=== PATIENT | female | born 1980 ===

== ENCOUNTER 2017-09-10 07:37 | Emergency (ER) | payer OTHER ==
[2017-09-10 07:43] VITALS: BP 119/85; PULSE 79; RESP 16; TEMP 98.1; O2SAT 99; BMI 31.4
[2017-09-10] MEDS ORDERED: Naproxen 500 MG TAB PO ONE ×2 (08:42→09:13)
--- NOTE | 2017-09-10 09:07 | ED PDOC ---
Lower Extremity Pain/Injury Time Seen by Provider: 09/10/17 08:06 Chief Complaint (Nursing): Lower Extremity Problem/Injury Chief Complaint (Provider): Lower Extremity Problem/Injury History Per: Patient History/Exam Limitations: no limitations Onset/Duration Of Symptoms: Hrs (x1) Current Symptoms Are (Timing): Still Present Additional Complaint(s): 36 year old female who presents to the emergency department with bilateral right knee pain radiating to right calf associated with difficulty walking status post climbing aboard a commuter bus this morning. Denied any further medical complaints. PMD: none provided Past Medical History Reviewed: Historical Data, Nursing Documentation, Vital Signs Vital Signs: Last Vital Signs Temp 98.1 F 09/10/17 07:42 Pulse 79 09/10/17 07:42 Resp 16 09/10/17 07:42 BP 119/85 09/10/17 07:42 Pulse Ox 99 09/10/17 07:42 - Medical History PMH: No Chronic Diseases - Surgical History Surgical History: No Surg Hx - Family History Family History: States: Unknown Family Hx - Social History Current smoker - smoking cessation education provided: No Ex-Smoker (has not smoked in the last 12 months): No Alcohol: None Drugs: Denies - Home Medications Home Medications: Ambulatory Orders Medication Instructions Recorded Famotidine [Pepcid] 20 mg PO BID #28 tab 09/10/17 Naproxen [Naprosyn] 500 mg PO BID PRN #20 tablet 09/10/17 - Allergies Allergies/Adverse Reactions: Allergies Allergy/AdvReac Type Severity Reaction Status Date / Time No Known Allergies Allergy Verified 09/10/17 07:51 Review of Systems ROS Statement: Except As Marked, All Systems Reviewed And Found Negative Musculoskeletal: Positive for: Leg Pain (right knee bilaterally and right calf) , Other (difficulty walking) Physical Exam - Reviewed Nursing Documentation Reviewed: Yes Vital Signs Reviewed: Yes - Physical Exam Appears: Positive for: Non-toxic, No Acute Distress Extremity: Positive for: Normal ROM (right leg), Tenderness (palpale right knee) , Pedal Edema (or erythema/effusion), Capillary Refill (2+), Other (5/5 ankle strength). Negative for: Calf Tenderness (right-sided), Deformity (right knee) - ECG O2 Sat by Pulse Oximetry: 99 (RA) Pulse Ox Interpretation: Normal - Radiology X-Ray: Viewed By Al X-Ray Interpretation: No Acute Disease - Progress Condition: Improving,but remains with symptoms Medical Decision Making Medical Decision Making: Initial Impression: Acute knee strain Initial Plan: * Urine * Xray knee (right) * Naproxen 500mg PO Scribe Attestation: Documented by Kanika Fitzgerald, acting as a scribe for Sofía Whitaker MD. Provider Scribe Attestation: All medical record entries made by the Scribe were at my direction and personally dictated by me. I have reviewed the chart and agree that the record accurately reflects my personal performance of the history, physical exam, medical decision making, and the department course for this patient. I have also personally directed, reviewed, and agree with the discharge instructions and disposition. Disposition - Clinical Impression Clinical Impression: Knee pain - Patient ED Disposition Is Patient to be Admitted: No Doctor Will See Patient In The: Office Counseled Patient/Family Regarding: Diagnosis, Need For Followup, Rx Given - Disposition Referrals: [facility] [Outside] [facility] [Outside] Disposition: Routine/Home Disposition Time: 09:15 Condition: STABLE Prescriptions: Famotidine [Pepcid] 20 mg PO BID #28 tab Naproxen [Naprosyn] 500 mg PO BID PRN #20 tablet PRN Reason: Pain, Moderate (4-7) Instructions: Knee Pain (ED) Forms: [employer] (Marshallese), [facility] ED School/Work Excuse Print Language: NEPALI - POA Present On Arrival: Falls Or Trauma
--- NOTE | 2017-09-10 11:14 | RAD ---
PROCEDURE: Right Knee Radiographs. HISTORY: Twisted knee while climbing onto commuter van COMPARISON: None. FINDINGS: BONES: No evidence of acute displaced fracture or dislocation.Small elliptical sclerotic density within the medial epicondyle consistent with bone island or osteoma JOINTS: Normal. No osteoarthritis. JOINT EFFUSION: Suspect trace joint effusion OTHER FINDINGS: None. IMPRESSION: No evidence of acute displaced fracture nor dislocation.
== END 2017-09-10 10:10 | disposition home or self-care (01) ==
LOC: H.ER 07:37
DX: M25.561 Pain in right knee (principal)

== ENCOUNTER 2017-10-19 10:27 | Emergency (ER) | payer OTHER ==
[2017-10-19 10:27] VITALS: BMI 31.4
[2017-10-19 10:53] VITALS: BP 116/59; PULSE 81; RESP 16; TEMP 98; O2SAT 99
--- NOTE | 2017-10-19 11:21 | ED PDOC ---
Lower Extremity Pain/Injury Time Seen by Provider: 10/19/17 11:09 Chief Complaint (Nursing): Lower Extremity Problem/Injury History Per: Patient Onset/Duration Of Symptoms: Other (2 months) Current Symptoms Are (Timing): Still Present Severity: Moderate Additional Complaint(s): Left knee pain x 2 months. No h/o trauma. Pain worse on standing. No swelling or crepitation. no fever. No calf pain. Seen in ED for same 09/10/2017 for knee pain. No acute findings on xray. No new injury. Past Medical History Vital Signs: Last Vital Signs Temp 98 F 10/19/17 10:51 Pulse 81 10/19/17 10:51 Resp 16 10/19/17 10:51 BP 116/59 L 10/19/17 10:51 Pulse Ox 99 10/19/17 10:51 - Medical History Other PMH: Lumbar disc herniation - Family History Family History: States: Unknown Family Hx - Immunization History Hx Tetanus Toxoid Vaccination: No Hx Influenza Vaccination: No Hx Pneumococcal Vaccination: No - Home Medications Home Medications: Ambulatory Orders Medication Instructions Recorded Famotidine [Pepcid] 20 mg PO BID #28 tab 09/10/17 Naproxen [Naprosyn] 500 mg PO BID PRN #20 tablet 09/10/17 traMADol [Ultram] 50 mg PO Q8 #10 tab 10/19/17 - Allergies Allergies/Adverse Reactions: Allergies Allergy/AdvReac Type Severity Reaction Status Date / Time No Known Allergies Allergy Verified 09/10/17 07:51 Review of Systems Musculoskeletal: Positive for: Leg Pain (Knee pain) Physical Exam - Physical Exam Appears: Positive for: Non-toxic, No Acute Distress Extremity: Positive for: Other (No knee pain or swelling. FROM no crepitance. No instability) - ECG O2 Sat by Pulse Oximetry: 99 Disposition - Clinical Impression Clinical Impression: Knee pain - Patient ED Disposition Is Patient to be Admitted: No Counseled Patient/Family Regarding: Diagnosis, Need For Followup, Rx Given - Disposition Referrals: Marzena Springer MD [Staff Provider] - Disposition: Routine/Home Disposition Time: 11:23 Condition: FAIR Prescriptions: traMADol [Ultram] 50 mg PO Q8 #10 tab Instructions: Knee Pain Print Language: TAJIK
[2017-10-19] MEDS ORDERED: Morphine 4 MG/ML VIAL ONE (18:50)
== END 2017-10-19 11:49 | disposition home or self-care (01) ==
LOC: H.ER 10:27
DX: M25.562 Pain in left knee (principal)